=== PATIENT | female | born 1975 | race Caucasian/White ===

== ENCOUNTER 2020-08-18 06:19 | Emergency (ER) | payer OTHER ==
[~2020-08-18 06:19] MED LIST: CYCLOBENZAPRINE10 MG PO
[2020-08-18] MEDS ORDERED: CORTISPORIN OTI10 M1 EARRT (06:43)
== END 2020-08-18 06:45 | disposition home or self-care (01) ==
LOC: ER1 06:19
DX: H60.321 Hemorrhagic otitis externa, right ear (principal)
CPT/HCPCS: 99282

== ENCOUNTER 2021-02-02 01:16 | Emergency (ER) | payer OTHER ==
[~2021-02-02 01:16] MED LIST changes: +CORTISPORIN OTI10 M1 EARRT
[2021-02-02 02:38] LABS: HEMOGLOBIN 14.8 gm/dl (12.3-15.3); RED BLOOD COUNT 4.4 M/UL (4.00-5.10); WHITE BLOOD COUNT 7.7 K/UL (4.5-11.0)
== END 2021-02-02 07:09 | disposition home or self-care (01) ==
LOC: ER1 01:16
PROVIDERS: Physician Assistant Medical
DX: R00.2 Palpitations (principal); R07.89 Other chest pain; E87.6 Hypokalemia; F17.210 Nicotine dependence, cigarettes, uncomplicated; Z90.49 Acquired absence of other specified parts of digestive tract; Z90.710 Acquired absence of both cervix and uterus; Z88.1 Allergy status to other antibiotic agents; Z88.2 Allergy status to sulfonamides; Z88.8 Allergy status to other drugs, medicaments and biological substances
CPT/HCPCS: 71045; 80053; 82550; 82553; 83735; 83874; 83880; 84100; 84439; 84443; 84484; 85025; 85379; 93005; 99285

== ENCOUNTER 2021-03-31 20:37 | Emergency (ER) | payer OTHER ==
[2021-03-31] MEDS ORDERED: ELIMITE 5% CREA60 GM TOP (22:05)
== END 2021-03-31 22:19 | disposition home or self-care (01) ==
LOC: ER1 20:37
DX: B86 Scabies (principal); F17.200 Nicotine dependence, unspecified, uncomplicated; Z90.49 Acquired absence of other specified parts of digestive tract
CPT/HCPCS: 99282